=== PATIENT | female | born 1960 | race Caucasian/White ===

== ENCOUNTER 2021-11-08 22:30 | Emergency (ER) | payer MEDICARE, MEDICAID, SELFPAY ==
[2021-11-08 22:32] VITALS: BP 127/87; PULSE 88; RESP 19; O2SAT 97; BMI 34.0
--- NOTE | 2021-11-08 22:36 | CTR_ITS ---
PROCEDURE INFORMATION: Exam: CT Head Without Contrast Exam date and time: 11/08/2021 11:17 PM Age: 61 years old Clinical indication: Dizziness; Additional info: Dizzy TECHNIQUE: Imaging protocol: Computed tomography of the head without contrast. Radiation optimization: All CT scans at this facility use at least one of these dose optimization techniques: automated exposure control; mA and/or kV adjustment per patient size (includes targeted exams where dose is matched to clinical indication); or iterative reconstruction. COMPARISON: CT head wo con* [id number] 11/01/2018 6:20 PM RADIATION DOSE METRICS: Total DLP (mGy-cm): 775.35 FINDINGS: Brain: No acute intracranial hemorrhage or mass effect. No definite acute infarct by CT. MRI could be more sensitive/specific for detection, as clinically directed. Cerebral ventricles: Ventricle size is normal for age. Paranasal sinuses: Included paranasal sinuses are essentially clear. Mastoid air cells: No significant acute finding. Bones/joints: No definite acute skull fracture. Soft tissues: No significant acute finding. Vasculature: Vascular calcifications in the internal carotid arteries. CT/CT head wo con* [id number] IMPRESSION: 1. No acute intracranial hemorrhage or mass effect. 2. No definite acute infarct by CT, see above. 3. Other findings discussed above.
--- NOTE | 2021-11-08 22:36 | XRR_ITS ---
PROCEDURE INFORMATION: Exam: XR Chest Exam date and time: 11/08/2021 11:29 PM Age: 61 years old Clinical indication: Other: Dizzy; Prior surgery; Surgery date: 6+ months; Surgery type: Open heart, defib TECHNIQUE: Imaging protocol: XR of the chest. Views: 1 view. COMPARISON: CR Chest 1 [place] [id number] 01/08/2019 4:05 PM FINDINGS: Tubes, catheters and devices: Left-sided cardiac pacemaker again noted. Lungs: No CHF/pulmonary edema. Visible lungs appear essentially clear. Pleural spaces: No visible pneumothorax. No definite pleural fluid. Heart/Mediastinum: Heart size is within normal limits. Bones/joints: Prior median sternotomy. XR/XR chest 1V portable [id number] IMPRESSION: 1. No definite CHF or pneumonia. 2. Other findings discussed above.
--- NOTE | 2021-11-08 22:37 | ECG_ITS ---
[facility] Test Date: 2021-11-08 Pat Name: Lynne Maria Department: Room: Gender: Female Clinical Data Coordinator: : 1960 Requested By: Porfirio Roa Order Number: [id number] Giana MD: [place] Joseph M.D. Measurements Intervals [place] Rate: 84 P: CA: QRS: 30 QRSD: 140 T: -60 QT: 400 QTc: 473 Interpretive Statements ATRIAL FIBRILLATION RIGHT BUNDLE BRANCH BLOCK [120+ ms QRS DURATION, UPRIGHT V1, 40+ ms S IN I/aVL/V4/V5/V6] Compared to ECG 11/02/2018 01:25:14 Right bundle-branch block now present Ventricular-paced complex(es) or rhythm no longer present T-wave abnormality no longer present Possible ischemia no longer present Electronically Signed On 11-09-2021 18:31:02 CDT by Montana Joseph M.D. [id number] f
[2021-11-08 22:42] VITALS: TEMP 36.4
--- NOTE | 2021-11-08 22:42 | W.ED.DIZZY ---
HPI - Dizziness General: Chief Complaint: Dizziness Stated Complaint: DIZZY Time Seen by Provider: 11/08/21 22:31 Source: patient and EMS Mode of arrival: EMS Limitations: no limitations History of Present Illness: HPI Narrative: 61-year-old female states she has had severe vertigo since this morning. States that she does have some vertigo at rest but is much worse with sudden movements states she feels like she cannot walk and feels very nauseous with any movements. Patient states she has been on Effexor for years and she had ran out over the weekend and she has not been taking it for the last 3 days. She denies any injuries denies any fever denies any worst improving factors. Associated symptoms: Denies chest pain, chills, nausea or vomiting Review of Systems Const: Denies: fever(s), chills, body aches or change in appetite Eyes: Denies: blurry vision or eye discomfort ENMT: Denies: throat pain or dental pain Card: Denies: chest pain Resp: Denies: dyspnea GI: Denies: abdominal pain, nausea, vomiting or diarrhea : Denies: dysuria Musc: Denies: neck pain or back pain Skin/Breast: Denies: rash Neuro: Reports: dizziness Psych: Denies: depression Jarrod/Lymph: Denies: easy bruising All/Imm: Denies: urticaria PFS ED PFSH: Medical History (Updated 11/09/21 @ 00:50 by Porfirio Roa MD) Depressed Social History (Updated 11/08/21 @ 22:46 by Porfirio Roa MD) Substance/Drug Use: never Physical Exam Const: COMMON NORMALS: patient oriented x3 HENMT: COMMON NORMALS: normocephalic and atraumatic HEAD & SCALP: normocephalic and atraumatic Eye: COMMON NORMALS: Equal, round and reactive pupils present and EOMs intact bilaterally PUPIL: Yes Equal, round and reactive pupils present Neck/C-Spine: COMMON NORMALS: full ROM and supple Chest: COMMONS NORMALS: normal inspection of the chest and normal palpation of entire chest wall Resp: COMMON NORMALS: normal respiratory effort, No retractions, No use of accessory muscles and clear to auscultation bilaterally AUSCULTATION: clear to auscultation bilaterally Cardio: COMMON NORMALS: regular rate, regular rhythm and No murmurs present (Cardio) RATE: regular rate RHYTHM: regular rhythm GI: COMMON NORMALS: Normal to inspection, nondistended, normoactive bowel sounds present, Soft to palpation, non-tender and no masses PALPATION: Yes Soft to palpation Extremity: COMMON NORMALS: normal to inspection and full ROM Neuro: COMMON NORMALS: patient oriented x3, moves all extremities and no focal motor deficits CRANIAL NERVES: Yes CN normal except as noted SPEECH: speech normal MOTOR EXAM: 5/5 motor strength present throughout Psych: COMMON NORMALS: mental status grossly normal, Normal thought process present and cooperative THOUGHT PROCESS: Normal thought process present Skin: COMMON NORMALS: no rashes or lesions noted and no wounds GENERAL SKIN EXAM: no rashes or lesions noted Course Vital Signs: Vital signs: Vital Signs Temperature 97.6 F 11/08/21 22:42 Pulse Rate 84 11/09/21 01:01 Respiratory Rate 16 11/09/21 01:01 Blood Pressure 125/67 11/09/21 01:01 Pulse Oximetry 95 11/09/21 01:01 MDM - Dizziness Medical Decision Making Patient presents here with vertigo that is since resolved here with Antivert her head CT here is normal she has no signs of a stroke she feels much improved is requesting for discharge we will prescribe her Antivert for home along with Zofran she is to follow-up with PCP and return if worsening she understands agrees to plan. Lab Data : 11/08/21 23:29 11/08/21 23:29 Radiology Impressions Chest X-Ray 11/08/21 22:36 IMPRESSION: 1. No definite CHF or pneumonia. 2. Other findings discussed above. Head CT 11/08/21 22:36 IMPRESSION: 1. No acute intracranial hemorrhage or mass effect. 2. No definite acute infarct by CT, see above. 3. Other findings discussed above. Laboratory Results WBC 13.5 10^3/uL (4.0-10.0) H 11/08/21 23:29 RBC 4.82 10^6/uL (4.1-5.3) 11/08/21 23:29 Hgb 13.6 g/dL (11.5-15.3) 11/08/21 23:29 Hct 40.9 % (37.0-47.0) 11/08/21 23:29 MCV 84.9 fl (81-99) 11/08/21 23: MCH 28.2 pg (28.0-34.0) 11/08/21 23: MCHC 33.3 g/dL (30.0-36.0) 11/08/21 23: RDW 15.2 % (12.1-15.1) H 11/08/21 23: Plt Count 444 10^3/cmm (130-400) H 11/08/21 23: MPV 10.6 fL (7.4-10.4) H 11/08/21 23: Neut % (Auto) 68.3 % 11/08/21 23: Lymph % (Auto) 18.9 % 11/08/21 23: [place] % (Auto) 10.7 % 11/08/21 23: Eos % (Auto) 1.1 % 11/08/21: Baso % (Auto) 0.6 % 11/08/21: Neut # (Auto) 9.20 10^3/uL (1.8-7.7) H 11/08/21 23: Lymph # (Auto) 2.6 10^3/uL (0.8-4.8) 11/08/21 23: [place] # (Auto) 1.4 10^3/uL (0.2-0.9) H 11/08/21 23: Eos # (Auto) 0.2 10^3/uL (0.0-0.8) 11/08/21 23: Baso # (Auto) 0.1 10^3/uL (0.0-0.1) 11/08/21 23: Nucleated RBC % (auto) 0 % 11/08/21 23: Nucleated RBCs # 0.0 /100WBC 11/08/21 23: PT 13.20 SECONDS (12.1-14.9) 11/08/21 23: INR 0.97 (0.8-1.2) 11/08/21 23: Sodium 142 mmol/L (136-145) 11/08/21 23: Potassium 3.8 mmol/L (3.5-5.1) 11/08/21 23: Chloride 106 mmol/L (98-107) 11/08/21 23:29 Carbon Dioxide 24 mmol/L (22-29) 11/08/21 23:29 Anion Gap 15.8 (5-19) 11/08/21 23:29 BUN 14 mg/dL (8-23) 11/08/21 23: Creatinine 0.7 mg/dL (0.5-0.9) 11/08/21 23:29 GFR Calculation 85.4 mL/min (90-130) L 11/08/21 23: Glucose 111 mg/dL (65-115) 11/08/21 23: Calculated Osmolality 295 mOsm/kg (285-295) 11/08/21 23: Calcium 9.4 mg/dL (8.5-10.5) 11/08/21 23: Total Bilirubin 0.2 mg/dL (0.15-1.2) 11/08/21 23: AST 17 U/L (0-32) 11/08/21 23: ALT 20 U/L (0-33) 11/08/21 23: Alkaline Phosphatase 191 IU/L (35-105) H 11/08/21 23:29 Total Protein 7.6 g/dL (6.6-8.7) 11/08/21 23: Albumin 4.2 g/dL (3.5-5.2) 11/08/21 23: Globulin 3.4 g/dL (1.3-4.6) 11/08/21 23:29 Urine Color Straw (Yellow) 11/08/21 23:06 Urine Appearance Clear (CLEAR) 11/08/21 23:06 Urine pH 7 (5-7) 11/08/21 23:06 Ur Specific Blackey 1.015 (1.005-1.030) 11/08/21 23:06 Urine Protein Neg (Negative) 11/08/21 23:06 Urine Glucose (UA) Norm (Normal) 11/08/21 23:06 Urine Ketones Negative (Negative) 11/08/21 23:06 Urine Blood Neg (Negative) 11/08/21 23:06 Urine Nitrate Negative (Negative) 11/08/21 23:06 Urine Bilirubin Neg (Negative) 11/08/21 23:06 Urine Urobilinogen Norm mg/dL (Negative) 11/08/21 23:06 Ur Leukocyte Esterase Negative (Negative) 11/08/21 23:06 EKG Data EKG 1: I personally reviewed and interpreted this EKG as follows: EKG interpretation date: 11/08/21 EKG interpretation time: 22:45 Interpretation: afib hr [address] or t wave abnormalities qrs 140 qtc 441 Discharge Plan Discharge Patient Disposition: Home Clinical Impression: Vertigo Condition: Stable Prescriptions: New ondansetron 4 mg tablet,disintegrating 4 mg PO Q6H PRN (Reason: nausea and vomiting) Qty: 14 0RF Antivert 50 mg tablet 50 mg PO BID PRN (Reason: dizziness) Qty: 20 0RF Effexor XR 75 mg capsule,extended release 24hr 75 mg PO DAILY Qty: 30 0RF Discharge Orders: Discharge ED (Routine); Ordered 11/09/21 Ordered By: Porfirio Roa Referrals: Vicenta Archer MD [Primary Care Provider] - 1-3 days Discharge Diet: Advance as tolerated Discharge Activity: Resume usual activity Patient Instructions: Vertigo (ED) Coding Level of Care Code ED Direct Care Specialist for Chg Fwd Exam Comprehensive
[2021-11-08] MEDS: sodium chloride 0.9% 500 ML IV (23:08)
[2021-11-08] MEDS: ondansetron 2 mg/ML SDV 2 mL 4 MG IVP (23:08)
[2021-11-08] MEDS: meclizine 25 mg tablet 50 MG PO (23:08)
[2021-11-08 23:16] LABS: Add Urine Microscopic? NO; Charge for UA Resulting for Rev
[2021-11-08 23:24] LABS: Bilirubin Urine Neg (Negative); Blood Urine Neg (Negative); Glucose Urine UA Norm (Normal); Ketones Urine Negative (Negative); Leukocyte Esterase Urine Negative (Negative); Nitrate Urine Negative (Negative); Protein Urine Neg (Negative); Specific Gravity, Urine 1.015 (1.005-1.030); Urine Appearance Clear (CLEAR); Urine Color Straw (Yellow); Urobilinogen Urine Norm (Negative); pH Urine 7 (5-7)
[2021-11-08 23:47] LABS: Basophils # 0.1 10^3/uL (0.0-0.1); Basophils % 0.6 %; Eosinophils # 0.2 10^3/uL (0.0-0.8); Eosinophils % 1.1 %; Hematocrit 40.9 % (37.0-47.0); Hemoglobin 13.6 g/dL (11.5-15.3); Lymphocytes # 2.6 10^3/uL (0.8-4.8); Lymphocytes % 18.9 %; Mean Corpuscular HGB Conc 33.3 g/dL (30.0-36.0); Mean Corpuscular Hemoglobin 28.2 pg (28.0-34.0); Mean Corpuscular Volume 84.9 fl (81-99); Mean Platelet Volume 10.6 fL (7.4-10.4); Monocytes # 1.4 10^3/uL (0.2-0.9); Monocytes % 10.7 %; Neutrophils % 68.3 %; Nucleated Red Blood Cells % 0 %; Platelet Count 444 10^3/cmm (130-400); Red Blood Count 4.82 10^6/uL (4.1-5.3); Red Cell Distribution Width 15.2 % (12.1-15.1); White Blood Count 13.5 10^3/uL (4.0-10.0)
[2021-11-08 23:58] LABS: INR 0.97 (0.8-1.2)
[2021-11-09] VITALS: BP 142/84; PULSE 76; RESP 15; O2SAT 95
[2021-11-09 00:05] LABS: Albumin Level 4.2 g/dL (3.5-5.2); Alkaline Phosphatase 191 IU/L (35-105); Chloride 106 mmol/L (98-107); Potassium 3.8 mmol/L (3.5-5.1); Sodium 142 mmol/L (136-145)
[2021-11-09 00:24] LABS: Alanine Aminotransferase 20 U/L (0-33); Anion Gap 15.8 (5-19); Aspartate Amino Transferase 17 U/L (0-32); Blood Urea Nitrogen 14 mg/dL (8-23); Calcium 9.4 mg/dL (8.5-10.5); Carbon Dioxide 24 mmol/L (22-29); Creatinine Clr Calc Pharmacy 92.7504; Globulin 3.4 g/dL (1.3-4.6); Glomerular Filtration Rate 85.4 mL/min (90-130); Glucose 111 mg/dL (65-115); Osmolality Calculated 295 mOsm/kg (285-295); Total Bilirubin 0.2 mg/dL (0.15-1.2); Total Protein 7.6 g/dL (6.6-8.7)
[2021-11-09] MEDS: venlafaxine ER (24HR) 75 mg Capsule PO (00:41)
[2021-11-09 01:01] VITALS: BP 125/67; PULSE 84; RESP 16; O2SAT 95
== END 2021-11-09 01:09 | disposition home or self-care (01) ==
PROVIDERS: Emergency Provider Emergency Medicine; PCP Family Medicine
DX: R42 Dizziness and giddiness (principal)
CPT/HCPCS: 70450; 71045; 80053; 81003; 85025; 85610; 93005; 96374; 99284; J2405; J7040; J8597

== ENCOUNTER 2023-10-08 20:05 | Emergency (ER) | payer MEDICARE, SELFPAY ==
[2023-10-08] VITALS (7 sets, daily range): BP systolic 116–138; BP diastolic 69–79; PULSE 75–86; RESP 12–19; TEMP 36.6; O2SAT 92–100; BMI 32.4
--- NOTE | 2023-10-08 20:09 | ECG_ITS ---
[facility] Test Date: 2023-10-08 Pat Name: Lynne Maria Department: Room: Gender: Female Group Home Paraprofessional: : 1960 Requested By: Dominic Padilla Order Number: [id number] Giana MD: Abbie Farias M.D. Measurements Intervals [place] Rate: 76 P: 0 VA: 0 QRS: 24 QRSD: 137 T: 5 QT: 405 QTc: 457 Interpretive Statements Atrial fibrillation with demand V pacing Right bundle branch block pattern ELECTRONIC VENTRICULAR PACEMAKER -- CONTOUR ANALYSIS BASED ON INTRINSIC RHYTHM INTRAVENTRICULAR CONDUCTION DELAY [130+ ms QRS DURATION] Compared to ECG 11/08/2021 22:45:12 Intraventricular conduction delay now present Atrial fibrillation no longer present Right bundle-branch block no longer present Electronically Signed On 10-08-2023 22:49:19 CDT by Abbie Farias M.D. [email or web address]/[id number] f
--- NOTE | 2023-10-08 20:24 | XRR_ITS ---
PROCEDURE INFORMATION: Exam: XR Chest Exam date and time: 10/08/2023 8:38 PM Age: 63 years old Clinical indication: Chest pressure; Prior surgery; Surgery date: 6+ months; Surgery type: Pacemaker/cabg; Patient HX: Chest pain; Abnormal ekg TECHNIQUE: Imaging protocol: Radiologic exam of the chest. Views: 1 view. COMPARISON: CR XR chest 1V portable [id number] 11/08/2021 11:29 PM FINDINGS: Tubes, catheters and devices: Dual lead pacemaker. Lungs: Unremarkable. No consolidation. Pleural spaces: Unremarkable. No pleural effusion. No pneumothorax. Heart/Mediastinum: Unremarkable. No cardiomegaly. Vasculature: Unfolding of the thoracic aorta Bones/joints: Moderate degenerative disease of bilateral acromioclavicular joints and mild degenerative disease of bilateral glenohumeral joints. Left rotator cuff calcific tendinosis. Post sternotomy. XR/XR chest 1V portable [id number] IMPRESSION: No acute cardiopulmonary process.
--- NOTE | 2023-10-08 20:53 | ED_ITS ---
HPI - Chest Pain 2 General: Chief Complaint: Chest Pain Stated Complaint: defib fibrating Time Seen by Provider: 10/08/23 20:15 History of Present Illness: 63-year-old female who is status post pa cemaker defibrillator placement. She states that her pacer defibrillator is due for replacement she believes. It started vibrating yesterday, but she was asymptomatic. Today, while at home resting, her pacemaker is vibrated a few times. She is feeling weak, nauseated, etc. She notes some mild chest discomfort. She is mildly short of breath. She denies any fever. 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 Associated symptoms: Deny abdominal pain or fever(s) Review of Systems 2 Const: Denies: fever(s), chills or body aches Eyes: Denies: change in vision Resp: Denies: productive cough, non-productive cough or wheezing GI: Denies: abdominal pain, diarrhea or hematochezia : Denies: difficulty voiding Skin/Breast: Denies: rash Neuro: Denies: headache(s), weakness in extremities, dizziness or confusion PFSH ED 2 PFSH: Medical History (Updated 10/08/23 @ 23:14 by Dominic Chaparro DO) Depressed Social History (Updated 11/08/21 @ 22:46 by Porfirio Roa MD) Substance/Drug Use: never Physical Exam 2 Const: COMMON NORMALS: no acute distress GENERAL APPEARANCE: cooperative; not ill appearing and not frail appearing HENMT: COMMON NORMALS: normocephalic, atraumatic and Normal external nose present HEAD & SCALP: normocephalic and atraumatic FACE & SINUS: normal facial exam and face symmetric NOSE: Normal external nose present Eye: COMMON NORMALS: Equal, round and reactive pupils present and EOMs intact bilaterally PUPIL: Yes Equal, round and reactive pupils present Neck/C-Spine: GENERAL: Yes trachea midline Chest: CHEST: Yes Symmetrical chest wall rise Resp: COMMON NORMALS: normal respiratory effort, No retractions, No use of accessory muscles and clear to auscultation bilaterally AUSCULTATION: clear to auscultation bilaterally Cardio: COMMON NORMALS: regular rate and regular rhythm RATE: regular rate RHYTHM: regular rhythm GI: COMMON NORMALS: Normal to inspection, nondistended, normoactive bowel sounds present Extremity: COMMON NORMALS: no pedal edema Neuro: [place] COMA SCALE: document GCS findings Stewardson coma scale eye opening: Spontaneous Steward[place] coma scale verbal response: Orientated Stewardson coma scale motor response: Obey commands [place] coma scale total score: 15 S ENSORY EXAM: Yes extremities (intact) Psych: COMMON NORMALS: speech normal SPEECH: Yes normal speech Skin: COMMON NORMALS: no rashes or lesions noted GENERAL SKIN EXAM: no rashes or lesions noted Course 2 Vital Signs: Vital signs: Vital Signs Temperature 97.8 F 10/08/23 20:05 Pulse Rate 86 10/08/23 23:24 Respiratory Rate 19 H 10/08/23 23:24 Blood Pressure 116/76 10/08/23 23:24 Pulse Oximetry 100 10/08/23 23:24 Oxygen Delivery Me thod Room Air 10/08/23 22:03 MDM - Chest Pain Medical Decision Making Heart rate and blood pressure been stable here. Pacer/defibrillator is interrogated here, and shows that it is due for power supply replacement. She has had episodes of atrial tachycardia and atrial fibrillation requiring overdrive pacing. Lab Data 10/08/23 21:28 10/08/23 21:28 Radiology Impressions Chest X-Ray 10/08/23 20:24 IMPRESSION: No acute cardiopulmonary process. Laboratory Results WBC 12.77 10^3/uL (3.29-11.43) H 10/08/23 21: RBC 5.20 10^6/uL (3.85-5.65) 10/08/23 21: Hgb 14.50 g/dL (11.27-16.99) 10/08/23 21: Hct 45.1 % (36-47) 10/08/23 21: MCV 86.7 fl (85-98) 10/08/23 21: MCH 27.9 pg (27-33) 10/08/23 21: MCHC 32.2 g/dL (30-55) 10/08/23 21: RDW 15.2 % (12.1-15.1) H 10/08/23 21:28 Plt Count 446 10^3/cmm (157-399) H 10/08/23 21: MPV 10.7 fL (7.4-10.4) H 10/08/23 21: Neut % (Auto) 73.6 % 10/08/23 21: Lymph % (Auto) 17.6 % 10/08/23 21: [place] % (Auto) 7.0 % 10/08/23 21: Eos % (Auto) 0.9 % 10/08/23 21: Baso % (Auto) 0.7 % 10/08/23: Neut # (Auto) 9.39 10^3/uL (1.8-7.7) H 10/08/23 21: Lymph # (Auto) 2.3 10^3/uL (0.8-4.8) 10/08/23: [place] # (Auto) 0.9 10^3/uL (0.2-0.9) 10/08/23: Eos # (Auto) 0.1 10^3/uL (0.0-0.8) 10/08/23: Baso # (Auto) 0.1 10^3/uL (0.0-0.1) 10/08/23: Nucleated RBC % (auto) 0 % 10/08/23: Nucleated RBCs # 0.0 /100WBC 10/08/23: PT 13.10 SECONDS (12.1-14.9) 10/08/23: INR 0.96 (0.8-1.2) 10/08/23: APTT 27.7 SECONDS (23.9-36.7) 10/08/23 21: Sodium 138 mmol/L (136-145) 10/08/23 21: Potassium 4.0 mmol/L (3.5-5.1) 10/08/23: Chloride 103 mmol/L (98-107) 10/08/23: Carbon Dioxide 25 mmol/L (22-29) 10/08/23: Anion Gap 14.0 (5-19) 10/08/23 21: BUN 13 mg/dL (8-23) 10/08/23 21: Creatinine 0.7 mg/dL (0.5-0.9) 10/08/23 21: GFR Calculation 84.8 mL/min (90-130) L 04/28/24 21:28 Glucose 105 mg/dL (65-115) 10/08/23 21: Calculated Osmolality 286 mOsm/kg (285-295) 10/08/23 21: Calcium 9.6 mg/dL (8.5-10.5) 10/08/23 21: Magnesium 2.2 mg/dL (1.7-2.3) 10/08/23 21: Total Bilirubin 0.2 mg/dL (0.15-1.2) 10/08/23 21: AST 20 U/L (0-32) 10/08/23 21: ALT 18 U/L (0-33) 10/08/23 21: Alkaline Phosphatase 189 U/L (35-105) H 10/08/23 21: Creatine Kinase 28 U/L (26-192) 10/08/23 21:28 Troponin T Baseline 9 ng/L (0-10) 10/08/23 21: Troponin T 120 Minute 8.68 ng/L (0-10) 10/08/23 22:44 Delta Troponin T -0.32 ABS# (0-10) L 10/08/23 22:44 NT-Pro-B Natriuret Pep 457 pg/mL (0-125) H 10/08/23 21:28 Total Protein 7.8 g/dL (6.6-8.7) 10/08/23 21:28 Albumin 4.0 g/dL (3.5-5.2) 10/08/23 21: Globulin 3.8 g/dL (1.3-4.6) 10/08/23 21:28 All radiology interpretation(s) finalized by discharge Discharge Plan Discharge Patient Disposition: Home Clinical Impression: Chest pain, Pacemaker at end of battery life Condition: Stable Prescriptions: No Action ondansetron 4 mg tablet,disintegrating 4 mg PO Q6H PRN (Reason: nausea and vomiting) Qty: 14 0RF Antivert 50 mg tablet 50 mg PO BID PRN (Reason: dizziness) Qty: 20 0RF Effexor XR 75 mg capsule,extended release 24hr 75 mg PO DAILY Qty: 30 0RF Discharge Orders: Discharge ED (Routine); Ordered 10/08/23 Ordered By: Dominic Chaparro Referrals: Vicenta Archer MD [Primary Care Provider] - Patient Instructions: Chest Pain (ED), Opioid Safety, Pain Management Activity Restrictions/Additional Instructions: Return for repeated episodes of chest pain, shortness of breath, swelling of the legs, syncope or passing out, any other concerning symptoms. Coding Level of Care Code ED Edge Trimming Machine Operator for Mal Rogel
[2023-10-08 21:41] LABS: Basophils # 0.1 10^3/uL (0.0-0.1); Basophils % 0.7 %; Eosinophils # 0.1 10^3/uL (0.0-0.8); Eosinophils % 0.9 %; Hematocrit 45.1 % (36-47); Lymphocytes # 2.3 10^3/uL (0.8-4.8); Lymphocytes % 17.6 %; Mean Corpuscular HGB Conc 32.2 g/dL (30-55); Mean Corpuscular Hemoglobin 27.9 pg (27-33); Mean Corpuscular Volume 86.7 fl (85-98); Mean Platelet Volume 10.7 fL (7.4-10.4); Monocytes # 0.9 10^3/uL (0.2-0.9); Neutrophils # 9.39 10^3/uL (1.8-7.7); Neutrophils % 73.6 %; Nucleated Red Blood Cells % 0 %; Platelet Count 446 10^3/cmm (157-399); Red Cell Distribution Width 15.2 % (12.1-15.1); White Blood Count 12.77 10^3/uL (3.29-11.43)
[2023-10-08 21:55] LABS: INR 0.96 (0.8-1.2)
[2023-10-08 21:56] LABS: Partial Thromboplastin Time 27.7 SECONDS (23.9-36.7)
[2023-10-08 22:01] LABS: Troponin(5th) Baseline 9 ng/L (0-10)
[2023-10-08 22:09] LABS: Alanine Aminotransferase 18 U/L (0-33); Alkaline Phosphatase 189 U/L (35-105); Aspartate Amino Transferase 20 U/L (0-32); Blood Urea Nitrogen 13 mg/dL (8-23); Calcium 9.6 mg/dL (8.5-10.5); Carbon Dioxide 25 mmol/L (22-29); Chloride 103 mmol/L (98-107); Creatine Phosphokinase 28 U/L (26-192); Creatinine Clr Calc Pharmacy 88.2837; Globulin 3.8 g/dL (1.3-4.6); Glomerular Filtration Rate 84.8 mL/min (90-130); Glucose 105 mg/dL (65-115); Magnesium 2.2 mg/dL (1.7-2.3); NT Pro B Type Natriuretic Pept 457 pg/mL (0-125); Osmolality Calculated 286 mOsm/kg (285-295); Sodium 138 mmol/L (136-145); Total Bilirubin 0.2 mg/dL (0.15-1.2); Total Protein 7.8 g/dL (6.6-8.7)
--- NOTE | 2023-10-08 22:24 | ECG_ITS ---
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 Measurements Intervals [place] Rate: 78 P: 0 MT: 0 QRS: 58 QRSD: 132 T: -33 QT: 396 QTc: 453 Interpretive Statements ATRIAL FIBRILLATION WITH ABERRANT CONDUCTION OR VENTRICULAR PREMATURE COMPLEXES INTRAVENTRICULAR CONDUCTION DELAY [130+ ms QRS DURATION] Compared to ECG 10/08/2023 20:09:27 Ventricular premature complex(es) now present Aberrant conduction of supraventricular beat(s) now present Ventricular-paced complex(es) or rhythm no longer present Electronically Signed On 10-08-2023 22:52:34 CDT by Abbie Farias M.D. [id number]
[2023-10-08 23:15] LABS: Troponin 5 2HR 8.68 ng/L (0-10)
[2023-10-08 23:18] LABS: Troponin 5 2HR Delta -0.32 ABS# (0-10)
== END 2023-10-08 23:25 | disposition home or self-care (01) ==
PROVIDERS: Emergency Provider Emergency Medicine; PCP Family Medicine
DX: R07.9 Chest pain, unspecified (principal); T82.191A Other mechanical complication of cardiac pulse generator (battery), initial encounter
CPT/HCPCS: 71045; 80053; 82550; 83735; 83880; 84484; 85025; 85610; 85730; 93005; 99285